=== PATIENT | male | born 1975 | race Caucasian/White ===

== ENCOUNTER 2021-10-05 15:43 | Inpatient (IN) | payer OTHER ==
[~2021-10-05] VITALS: Ht 167.6 cm; Wt 91.9 kg
[2021-10-05] MEDS ORDERED: INSLAN SQ (15:58)
[2021-10-05] MEDS ORDERED: INSREG SQ (15:58)
[2021-10-05] MEDS ORDERED: METF-1211 PO (15:58)
[2021-10-05 19:01] LABS: BASOPHILS % (AUTO) 0.8 % (0.0-2.0); EOSINOPHILS % (AUTO) 2.8 % (1.0-6.0); HEMOGLOBIN 11.1 g/dL (13.5-17.5); LYMPHOCYTES # (AUTO) 1.3 K/uL (1.0-4.8); LYMPHOCYTES % (AUTO) 20.5 % (22.0-44.0); MEAN CORPUSCULAR HEMOGLOBIN 28.3 pg (26.0-34.0); MEAN CORPUSCULAR HGB CONC 33.6 G/dL (31.0-37.0); MEAN CORPUSCULAR VOLUME 84 fL (80-100); MONOCYTES # (AUTO) 0.5 K/uL (0.1-1.0); MONOCYTES % (AUTO) 7.2 % (2.0-9.0); NEUTROPHILS # (AUTO) 4.4 K/uL (1.8-7.7); NEUTROPHILS % (AUTO) 68.7 % (40.0-70.0); PLATELET COUNT (AUTO) 260 K/uL (150-450); RED BLOOD CELL COUNT(AUTO) 3.92 MIL/uL (4.50-5.90); RED CELL DISTRIBUTION WIDTH 16.7 % (11.5-14.5)
[2021-10-05 19:11] LABS: ANION GAP 9 mmol/L (8-16); CALCIUM, TOTAL 8.9 mg/dL (8.8-10.5); CARBON DIOXIDE 21 mmol/L (22-29); CHLORIDE 109 mmol/L (98-107); CREATININE 1.09 mg/dL (0.60-1.30); GLOMERULAR FILTR. RATE CALC > 60 mL/min (>60); GLUCOSE,RANDOM 159 mg/dL (70-110); POTASSIUM 4.6 mmol/L (3.5-5.1); SODIUM SERUM 139 mmol/L (136-145); UREA NITROGEN, BLOOD 21 mg/dL (7-18)
[2021-10-05 19:18] LABS: ALANINE AMINOTRANSFERASE 125 U/L (12-78); ALKALINE PHOSPHATASE 261 U/L (46-116); ASPARTATE AMINOTRANSFERASE 88 U/L (15-37); BILIRUBIN,TOTAL 0.3 mg/dL (0.1-1.0); TOTAL PROTEIN, SERUM 7.5 g/dL (6.4-8.2)
[2021-10-05 19:19] LABS: ALBUMIN 3.6 g/dL (3.4-5.0); LIPASE 158 U/L (73-393)
[2021-10-05 19:21] LABS: B-TYPE NATRIURETIC PEPTIDE < 5 pg/mL (0-100)
[2021-10-05 19:35] LABS: COVID AG,FIA SOURCE NASOPHARYNGEAL
[2021-10-05] MEDS ORDERED: NICOTINE 14 MG/24 HOUR PATCH TD PRN (22:15)
[2021-10-05] MEDS ORDERED: IBUPROFEN 400 MG TABLET PO PRN (22:15)
[2021-10-05] MEDS ORDERED: ALBUTEROL SULFATE HFA 90 MCG/PUFF 8 GM INHALER IH PRN (22:15)
[2021-10-05] MEDS ORDERED: MAG HYDROX/AL HYDROX/SIMETH ES 30 ML SUSPENSION UDCUP PO PRN (22:15)
[2021-10-05] MEDS ORDERED: ACETAMINOPHEN 325 MG TABLET PO PRN (22:15)
[2021-10-05] MEDS ORDERED: PETROLATUM,WHITE 28 GM JELLY TP PRN (22:15)
[2021-10-05] MEDS ORDERED: MAGNESIUM HYDROXIDE SUSPENSION 30 ML UDCUP PO PRN (22:15)
[2021-10-05] MEDS ORDERED: LOPERAMIDE HCL 2 MG CAPSULE PO PRN (22:15)
[2021-10-05] MEDS ORDERED: CloNIDine HCL 0.1 MG TABLET PO PRN (22:15)
[2021-10-05] MEDS ORDERED: DOCUSATE SODIUM 100 MG CAPSULE PO PRN (22:15)
[2021-10-05] MEDS ORDERED: ONDANSETRON HCL 4 MG TABLET PO PRN (22:15)
[2021-10-05] MEDS ORDERED: GuaiFENesin/D-METHORPHAN [SUGAR-FREE] 200-20MG/10 ML SYRUP UDCUP PO PRN (22:15)
[2021-10-05] MEDS ORDERED: DEXTROSE 50%-WATER 25 GM/50 ML SYRINGE IVP PRN (22:30)
[2021-10-05] MEDS ORDERED: LORazepam 2 MG TABLET PO ONE (23:00)
[2021-10-06 01:13] VITALS: BP 128/85
[2021-10-06 04:58] VITALS: BP 135/84
[2021-10-06] MEDS: INSULIN LISPRO 100 UNITS/ML SQ PRN ×3 (06:25→20:19)
[2021-10-06 07:06] LABS: GLUCOMETER DEV NAME(LOC) 6S.1B; GLUCOSE,POINT OF CARE 222 MG/DL (70-110)
[2021-10-06 07:59] VITALS: BP 110/65
[2021-10-06] MEDS: MetFORMIN HCL 500 MG TABLET PO SCH ×2 (08:10→17:43)
[2021-10-06] MEDS ORDERED: OLANZapine 5 MG RAPDIS TABLET PO PRN (10:30)
[2021-10-06] MEDS ORDERED: OLANZapine 5 MG RAPDIS TABLET PO ONE (10:30)
[2021-10-06] MEDS ORDERED: FENO160T11 PO (10:55)
[2021-10-06] MEDS ORDERED: SIMV-46 PO (10:55)
[2021-10-06 14:46] LABS: GLUCOMETER DEV NAME(LOC) 6N.2; GLUCOSE,POINT OF CARE 244 MG/DL (70-110)
[2021-10-06 16:14] VITALS: BP 129/78
[2021-10-06] MEDS: OLANZapine 5 MG RAPDIS TABLET PO SCH ×2 (17:44→20:21)
[2021-10-06 18:11] LABS: GLUCOMETER DEV NAME(LOC) 6S.1B; GLUCOSE,POINT OF CARE 148 MG/DL (70-110)
[2021-10-06 20:11] VITALS: BP 126/73
[2021-10-06] MEDS ORDERED: MELATONIN 5 MG TABLET PO SCH (21:00)
[2021-10-06] MEDS ORDERED: INSULIN GLARGINE,HUM.REC.ANLOG 100 UNITS/ML SQ SCH (21:00)
[2021-10-06 21:26] LABS: GLUCOMETER DEV NAME(LOC) 6S.1B; GLUCOSE,POINT OF CARE 295 MG/DL (70-110)
[2021-10-07 04:32] VITALS: BP 125/79
[2021-10-07] MEDS: INSULIN LISPRO 100 UNITS/ML SQ PRN ×2 (05:55→11:15)
[2021-10-07 05:58] LABS: BASOPHILS % (AUTO) 0.6 % (0.0-2.0); EOSINOPHILS % (AUTO) 3.4 % (1.0-6.0); HEMATOCRIT 33.1 % (41-53); LYMPHOCYTES # (AUTO) 1.5 K/uL (1.0-4.8); LYMPHOCYTES % (AUTO) 28.6 % (22.0-44.0); MEAN CORPUSCULAR HEMOGLOBIN 28.4 pg (26.0-34.0); MEAN CORPUSCULAR HGB CONC 33.3 G/dL (31.0-37.0); MEAN CORPUSCULAR VOLUME 85 fL (80-100); MONOCYTES # (AUTO) 0.5 K/uL (0.1-1.0); MONOCYTES % (AUTO) 8.8 % (2.0-9.0); NEUTROPHILS % (AUTO) 58.6 % (40.0-70.0); PLATELET COUNT (AUTO) 238 K/uL (150-450); RED BLOOD CELL COUNT(AUTO) 3.89 MIL/uL (4.50-5.90); RED CELL DISTRIBUTION WIDTH 16.8 % (11.5-14.5)
[2021-10-07 06:06] LABS: GLUCOMETER DEV NAME(LOC) 6N.2; GLUCOSE,POINT OF CARE 165 MG/DL (70-110)
[2021-10-07 06:23] LABS: ALANINE AMINOTRANSFERASE 75 U/L (12-78); ALBUMIN 3.1 g/dL (3.4-5.0); ALKALINE PHOSPHATASE 218 U/L (46-116); ANION GAP 12 mmol/L (8-16); ASPARTATE AMINOTRANSFERASE 26 U/L (15-37); BILIRUBIN,TOTAL 0.3 mg/dL (0.1-1.0); CALCIUM, TOTAL 8.4 mg/dL (8.8-10.5); CARBON DIOXIDE 20 mmol/L (22-29); CHLORIDE 108 mmol/L (98-107); CREATININE 1.03 mg/dL (0.60-1.30); GLOMERULAR FILTR. RATE CALC > 60 mL/min (>60); GLUCOSE,RANDOM 174 mg/dL (70-110); POTASSIUM 4.1 mmol/L (3.5-5.1); SODIUM SERUM 140 mmol/L (136-145); TOTAL PROTEIN, SERUM 6.8 g/dL (6.4-8.2); UREA NITROGEN, BLOOD 29 mg/dL (7-18)
[2021-10-07 07:30] VITALS: BP 112/67
[2021-10-07] MEDS: MetFORMIN HCL 500 MG TABLET PO SCH (08:14)
[2021-10-07] MEDS: OLANZapine 5 MG RAPDIS TABLET PO SCH ×2 (08:14→15:27)
[2021-10-07] MEDS ORDERED: OMEGA-3/DHA/EPA/FISH OIL 1,000 MG CAPSULE PO SCH (09:00)
[2021-10-07] MEDS ORDERED: CITALOPRAM HYDROBROMIDE 20 MG TABLET PO SCH (09:00)
[2021-10-07 15:32] VITALS: BP 113/66
[2021-10-07] MEDS ORDERED: OMEG-108 PO (15:42)
[2021-10-07] MEDS ORDERED: CITA-144 PO (15:42)
[2021-10-07] MEDS ORDERED: OLAN5TAB94 PO (15:42)
[2021-10-07 21:31] LABS: GLUCOMETER DEV NAME(LOC) 6S.1B; GLUCOSE,POINT OF CARE 280 MG/DL (70-110)
== END 2021-10-07 16:45 | disposition home or self-care (01) | DRG 750 ==
LOC: EMS 15:47 → 6N 10-06 00:39 → 6S 10-06 01:28
PROVIDERS: ADMIT Internal Medicine; ATTEND Internal Medicine
DX: F25.9 Schizoaffective disorder, unspecified (principal); E87.2 Acidosis; R45.851 Suicidal ideations; D64.9 Anemia, unspecified; E11.65 Type 2 diabetes mellitus with hyperglycemia; F60.0 Paranoid personality disorder; Z20.822 Contact with and (suspected) exposure to COVID-19; R79.89 Other specified abnormal findings of blood chemistry; Z79.4 Long term (current) use of insulin; Z91.14 Patient's other noncompliance with medication regimen; Z93.6 Other artificial openings of urinary tract status; Z79.84 Long term (current) use of oral hypoglycemic drugs; Z79.899 Other long term (current) drug therapy
CPT/HCPCS: 80053; 82962; 83690; 83880; 84484; 85025; 99285; G0480; J1815; Q9967

== ENCOUNTER 2024-02-02 19:11 | Inpatient (IN) | payer MEDICAID, OTHER ==
[~2024-02-02] VITALS: Ht 167.6 cm; Wt 90.7 kg
[~2024-02-02 19:11] MED LIST: CITA-144 PO; FENO160T11 PO; INSREG SQ; METF-1211 PO; OMEG-135 PO; RISP-31 PO; SIMV-46 PO
[2024-02-02 19:46] LABS: BASOPHILS % (AUTO) 0.5 % (0.0-2.0); EOSINOPHILS % (AUTO) 2.5 % (1.0-6.0); HEMATOCRIT 33.9 % (41-53); HEMOGLOBIN 11.2 g/dL (13.5-17.5); LYMPHOCYTES # (AUTO) 1.3 K/uL (1.0-4.8); LYMPHOCYTES % (AUTO) 15.3 % (22.0-44.0); MEAN CORPUSCULAR HEMOGLOBIN 28.8 pg (26.0-34.0); MEAN CORPUSCULAR VOLUME 87 fL (80-100); MONOCYTES # (AUTO) 0.7 K/uL (0.1-1.0); MONOCYTES % (AUTO) 7.9 % (2.0-9.0); NEUTROPHILS # (AUTO) 6.4 K/uL (1.8-7.7); NEUTROPHILS % (AUTO) 73.8 % (40.0-70.0); PLATELET COUNT (AUTO) 330 K/uL (150-450); RED BLOOD CELL COUNT(AUTO) 3.89 MIL/uL (4.50-5.90); RED CELL DISTRIBUTION WIDTH 15.4 % (11.5-14.5); WHITE BLOOD COUNT (AUTO) 8.7 K/uL (4.5-11.0)
[2024-02-02 19:53] LABS: CALCIUM, TOTAL 8.8 mg/dL (8.8-10.5); CREATININE 1.94 mg/dL (0.60-1.30); POTASSIUM 4.5 mmol/L (3.5-5.1)
[2024-02-02 20:14] LABS: COVID AG,FIA SOURCE NASAL SWAB
[2024-02-02 20:39] LABS: SARS-COV2 (COVID) ANTIGEN,FIA Negative (Negative)
[2024-02-02] MEDS: DiphenhydrAMINE HCL 50 MG/ML VIAL IM ONE (20:41)
[2024-02-02] MEDS: LORazepam 2 MG/ML VIAL IM ONE (20:42)
[2024-02-02] MEDS: HALOPERIDOL LACTATE 5 MG/ML VIAL IM ONE (20:43)
[2024-02-02] MEDS: CEPHALEXIN MONOHYDRATE 500 MG CAPSULE PO ONE (21:09)
[2024-02-02] MEDS: SULFAMETHOX/TRIMETH DS 800-160 MG/TABLET PO ONE (21:09)
[2024-02-03 00:11] VITALS: BP 116/59; PULSE 68; RESP 18; TEMP 97.5; O2SAT 99
[2024-02-03] MEDS ORDERED: ALBUTEROL SULFATE HFA 90 MCG/PUFF 8 GM INHALER IH PRN (08:30)
[2024-02-03] MEDS ORDERED: ACETAMINOPHEN 325 MG TABLET PO PRN (08:30)
[2024-02-03] MEDS ORDERED: DOCUSATE SODIUM 100 MG CAPSULE PO PRN (08:30)
[2024-02-03] MEDS ORDERED: CloNIDine HCL 0.1 MG TABLET PO PRN (08:30)
[2024-02-03] MEDS ORDERED: DEXTROSE 50%-WATER 25 GM/50 ML SYRINGE IVP PRN (08:30)
[2024-02-03] MEDS ORDERED: PETROLATUM,WHITE 28 GM JELLY TP PRN (08:30)
[2024-02-03] MEDS ORDERED: ONDANSETRON HCL 4 MG TABLET PO PRN (08:30)
[2024-02-03] MEDS ORDERED: IBUPROFEN 600 MG TABLET PO PRN (08:30)
[2024-02-03] MEDS ORDERED: LOPERAMIDE HCL 2 MG CAPSULE PO PRN (08:30)
[2024-02-03] MEDS ORDERED: MAG HYDROX/ALUMINUM HYD/SIMETH ES 30 ML SUSPENSION UDCUP PO PRN (08:30)
[2024-02-03] MEDS ORDERED: BENZOCAINE/MENTHOL LOZENGE PO PRN (08:30)
[2024-02-03] MEDS ORDERED: OMEPRAZOLE 20 MG CAPSULE PO PRN (08:30)
[2024-02-03] MEDS ORDERED: BACITRACIN 28 GM OINTMENT TP PRN (08:30)
[2024-02-03 08:45] VITALS: RESP 18
[2024-02-03] MEDS: FENOFIBRATE 160 MG TABLET PO SCH (09:09)
[2024-02-03] MEDS: SULFAMETHOX/TRIMETH DS 800-160 MG/TABLET PO SCH (09:10)
[2024-02-03] MEDS: OMEGA-3/DHA/EPA/FISH OIL 1,000 MG CAPSULE PO SCH (09:10)
[2024-02-03 10:34] LABS: CHOL/HDL RATIO 5.6 (4.2-7.3); CHOLESTEROL 200 mg/dL (131-200); HDL CHOLESTEROL 36 mg/dL (40-60); THYROID STIMULATING HORMONE 5.62 uIU/mL (0.36-3.74); TRIGLYCERIDES 599 mg/dL (15-150)
[2024-02-03] MEDS: INSULIN LISPRO 100 UNITS/ML SQ PRN (11:34)
[2024-02-03 11:46] LABS: GLUCOMETER DEV NAME(LOC) 3E.C; GLUCOSE,POINT OF CARE 260 MG/DL (70-110)
[2024-02-03] MEDS: CITALOPRAM HYDROBROMIDE 20 MG TABLET PO SCH (14:15)
[2024-02-03] MEDS: RisperiDONE 2 MG TABLET PO SCH (14:16)
[2024-02-03] MEDS: HALOPERIDOL 5 MG TABLET PO PRN (14:30)
[2024-02-03] MEDS: LORazepam 2 MG TABLET PO PRN (14:30)
[2024-02-03 17:15] LABS: GLUCOMETER DEV NAME(LOC) 3E.C; GLUCOSE,POINT OF CARE 304 MG/DL (70-110)
[2024-02-03 20:29] VITALS: RESP 18
[2024-02-03 20:45] LABS: GLUCOMETER DEV NAME(LOC) 3E.C; GLUCOSE,POINT OF CARE 265 MG/DL (70-110)
[2024-02-03] MEDS: SIMVASTATIN 40 MG TABLET PO SCH (20:46)
[2024-02-03] MEDS: INSULIN GLARGINE,HUM.REC.ANLOG 100 UNITS/ML SQ SCH (20:54)
[2024-02-03] MEDS ORDERED: ATORVASTATIN CALCIUM 20 MG TABLET PO SCH (21:00)
[2024-02-04] MEDS: ZOLPIDEM TARTRATE 10 MG TABLET PO PRN (02:05)
[2024-02-04 06:21] LABS: GLUCOMETER DEV NAME(LOC) 3E.C; GLUCOSE,POINT OF CARE 190 MG/DL (70-110)
[2024-02-04] MEDS: LEVOTHYROXINE SODIUM 25 MCG TABLET PO SCH (06:29)
[2024-02-04 07:04] LABS: BASOPHILS % (AUTO) 0.4 % (0.0-2.0); EOSINOPHILS % (AUTO) 2.7 % (1.0-6.0); HEMATOCRIT 33.2 % (41-53); LYMPHOCYTES # (AUTO) 1.2 K/uL (1.0-4.8); LYMPHOCYTES % (AUTO) 21.6 % (22.0-44.0); MEAN CORPUSCULAR HEMOGLOBIN 28.6 pg (26.0-34.0); MEAN CORPUSCULAR VOLUME 87 fL (80-100); MONOCYTES # (AUTO) 0.4 K/uL (0.1-1.0); MONOCYTES % (AUTO) 6.7 % (2.0-9.0); NEUTROPHILS # (AUTO) 3.9 K/uL (1.8-7.7); NEUTROPHILS % (AUTO) 68.6 % (40.0-70.0); PLATELET COUNT (AUTO) 274 K/uL (150-450); RED BLOOD CELL COUNT(AUTO) 3.82 MIL/uL (4.50-5.90); RED CELL DISTRIBUTION WIDTH 15.6 % (11.5-14.5); WHITE BLOOD COUNT (AUTO) 5.7 K/uL (4.5-11.0)
[2024-02-04 07:35] LABS: ALANINE AMINOTRANSFERASE 18 U/L (12-78); ALBUMIN 3.3 g/dL (3.4-5.0); ALKALINE PHOSPHATASE 158 U/L (46-116); ANION GAP 11 mmol/L (8-16); ASPARTATE AMINOTRANSFERASE 20 U/L (15-37); BILIRUBIN,TOTAL 0.2 mg/dL (0.1-1.0); CALCIUM, TOTAL 8.2 mg/dL (8.8-10.5); CARBON DIOXIDE 17 mmol/L (22-29); CHLORIDE 109 mmol/L (98-107); CHOL/HDL RATIO 4.9 (4.2-7.3); CHOLESTEROL 197 mg/dL (131-200); CREATININE 1.75 mg/dL (0.60-1.30); GLOMERULAR FILTR. RATE CALC 41 mL/min (>60); GLUCOSE,RANDOM 88 mg/dL (70-110); HDL CHOLESTEROL 40 mg/dL (40-60); PHOSPHORUS 2.6 mg/dL (2.5-4.9); POTASSIUM 5.1 mmol/L (3.5-5.1); SODIUM SERUM 137 mmol/L (136-145); TOTAL PROTEIN, SERUM 7.6 g/dL (6.4-8.2); TRIGLYCERIDES 407 mg/dL (15-150); UREA NITROGEN, BLOOD 35 mg/dL (7-18)
[2024-02-04] MEDS: OMEGA-3/DHA/EPA/FISH OIL 1,000 MG CAPSULE PO SCH (09:00)
[2024-02-04 10:00] VITALS: BP 102/63; PULSE 96; RESP 17; TEMP 97.9; O2SAT 97
[2024-02-04 11:36] LABS: GLUCOMETER DEV NAME(LOC) 3E.C; GLUCOSE,POINT OF CARE 240 MG/DL (70-110)
[2024-02-04 16:41] LABS: GLUCOMETER DEV NAME(LOC) 3E.C; GLUCOSE,POINT OF CARE 299 MG/DL (70-110)
[2024-02-04] MEDS: MAGNESIUM HYDROXIDE SUSPENSION 30 ML UDCUP PO PRN (18:23)
[2024-02-04 20:45] LABS: GLUCOMETER DEV NAME(LOC) 3E.C; GLUCOSE,POINT OF CARE 176 MG/DL (70-110)
[2024-02-04 21:36] VITALS: RESP 18
[2024-02-05 06:31] LABS: GLUCOMETER DEV NAME(LOC) 3E.C; GLUCOSE,POINT OF CARE 151 MG/DL (70-110)
[2024-02-05 09:37] VITALS: BP 133/87; PULSE 91; RESP 17; TEMP 98.3; O2SAT 99
[2024-02-05 11:56] LABS: GLUCOMETER DEV NAME(LOC) 3E.C; GLUCOSE,POINT OF CARE 270 MG/DL (70-110)
[2024-02-05] MEDS: PALIPERIDONE PALMITATE 234 MG/1.5 ML SYRINGE IM ONE (15:07)
[2024-02-05 17:06] LABS: GLUCOMETER DEV NAME(LOC) 3E.C; GLUCOSE,POINT OF CARE 227 MG/DL (70-110)
[2024-02-05 20:31] LABS: GLUCOMETER DEV NAME(LOC) 3E.C; GLUCOSE,POINT OF CARE 198 MG/DL (70-110)
[2024-02-05 21:51] VITALS: BP 130/90; PULSE 89; RESP 19; TEMP 97.4; O2SAT 98
[2024-02-06 06:00] LABS: GLUCOMETER DEV NAME(LOC) 3E.C; GLUCOSE,POINT OF CARE 116 MG/DL (70-110)
[2024-02-06 08:51] VITALS: BP 126/68; PULSE 103; RESP 18; TEMP 98.7; O2SAT 98
[2024-02-06 12:40] LABS: GLUCOMETER DEV NAME(LOC) 3E.C; GLUCOSE,POINT OF CARE 205 MG/DL (70-110)
[2024-02-06 16:51] LABS: GLUCOMETER DEV NAME(LOC) 3E.C; GLUCOSE,POINT OF CARE 131 MG/DL (70-110)
[2024-02-06 20:21] LABS: GLUCOMETER DEV NAME(LOC) 3E.C; GLUCOSE,POINT OF CARE 264 MG/DL (70-110)
[2024-02-06 21:06] VITALS: BP 137/72; PULSE 76; RESP 18; TEMP 97.6; O2SAT 98
[2024-02-07 06:26] LABS: GLUCOMETER DEV NAME(LOC) 3E.C; GLUCOSE,POINT OF CARE 112 MG/DL (70-110)
[2024-02-07 12:00] LABS: GLUCOMETER DEV NAME(LOC) 3E.C; GLUCOSE,POINT OF CARE 138 MG/DL (70-110)
[2024-02-07] MEDS ORDERED: INSLAN SQ (14:43)
[2024-02-07] MEDS ORDERED: LEVO25TA9 PO (14:44)
[2024-02-07 15:39] VITALS: BP 128/76; PULSE 102; RESP 16; TEMP 97.2; O2SAT 100
== END 2024-02-07 17:38 | disposition home or self-care (01) | DRG 750 ==
LOC: EMS 19:11 → 3EC 23:35
PROVIDERS: ADMIT Psychiatry & Neurology Psychiatry; ATTEND Psychiatry & Neurology Psychiatry
DX: F20.9 Schizophrenia, unspecified (principal); E11.22 Type 2 diabetes mellitus with diabetic chronic kidney disease; R45.850 Homicidal ideations; E03.9 Hypothyroidism, unspecified; F41.9 Anxiety disorder, unspecified; G47.00 Insomnia, unspecified; E78.5 Hyperlipidemia, unspecified; I12.9 Hypertensive chronic kidney disease with stage 1 through stage 4 chronic kidney disease, or unspecified chronic kidney disease; N18.9 Chronic kidney disease, unspecified; F19.10 Other psychoactive substance abuse, uncomplicated; K59.00 Constipation, unspecified; Z20.822 Contact with and (suspected) exposure to COVID-19; F17.210 Nicotine dependence, cigarettes, uncomplicated; S61.401A Unspecified open wound of right hand, initial encounter; X58.XXXA Exposure to other specified factors, initial encounter; Y93.89 Activity, other specified; Y92.89 Other specified places as the place of occurrence of the external cause; Y99.8 Other external cause status; Z91.048 Other nonmedicinal substance allergy status; Z93.6 Other artificial openings of urinary tract status; Z79.899 Other long term (current) drug therapy
CPT/HCPCS: 80048; 80053; 80061; 82962; 83036; 83735; 84100; 84443; 85025; 99285; G0480; J1200; J1630; J1815; J2060